=== PATIENT | female | born 1955 | race Caucasian/White ===

== ENCOUNTER 2017-11-24 07:30 | Inpatient (IN) | payer OTHER ==
[~2017-11-24] VITALS: Ht 160 cm; Wt 94.8 kg
[2017-11-24] MEDS ORDERED: LOSARTAN-HCTZ1 EAC1 PO (09:23)
[2017-12-02] MEDS ORDERED: ASA-EC81 MG PO (14:01)
[2017-12-04] MEDS ORDERED: DUI500 PO (08:11)
[2017-12-04] MEDS ORDERED: PERCOCET 5-3251 EACH PO (08:11)
[2017-12-04] MEDS ORDERED: XARELTO10 MG PO (08:11)
== END 2017-12-04 17:53 | DRG 470 ==
LOC: O/R 12-01 06:15 → SURH 12-01 07:30
PROVIDERS: Orthopaedic Surgery
PROC: 0MT Bursae and Ligaments, Resection (ICD-10-PCS; 2017-12-01)
PROC: 0SR902Z Replacement of Right Hip Joint with Metal on Polyethylene Synthetic Substitute, Open Approach (ICD-10-PCS; principal; 2017-12-01 13:30)
DX: M16.11 Unilateral primary osteoarthritis, right hip (principal); D62 Acute posthemorrhagic anemia; M89.751 Major osseous defect, right pelvic region and thigh; M70.61 Trochanteric bursitis, right hip; I10 Essential (primary) hypertension; E66.09 Other obesity due to excess calories

== ENCOUNTER 2017-12-11 13:04 | Emergency (ER) | payer OTHER ==
[~2017-12-11] VITALS: Ht 160 cm; Wt 98.4 kg
[~2017-12-11 13:04] MED LIST: ASA-EC81 MG PO; DUI500 PO; LOSARTAN-HCTZ1 EAC1 PO; PERCOCET 5-3251 EACH PO; XARELTO10 MG PO
== END 2017-12-11 17:57 | disposition home or self-care (01) ==
LOC: ER 13:04
DX: K52.9 Noninfective gastroenteritis and colitis, unspecified (principal); E86.0 Dehydration

== ENCOUNTER 2017-12-15 08:02 | Inpatient (IN) | payer OTHER ==
[~2017-12-15] VITALS: Ht 167.6 cm; Wt 97.1 kg
[2018-01-05] MEDS ORDERED: INTEGRA F CAPS1 EACH PO (20:11)
[2018-01-05] MEDS ORDERED: XOPENEX0.63 MG/3 IH (20:11)
[2018-01-05] MEDS ORDERED: XARELTO10 MG PO (20:11)
== END 2018-01-05 20:41 | disposition home health service (06) | DRG 571 ==
LOC: ER 08:02 → MEDI 19:32
PROVIDERS: Orthopaedic Surgery
PROC: BW3GY0Z Magnetic Resonance Imaging (MRI) of Pelvic Region using Other Contrast, Unenhanced and Enhanced (ICD-10-PCS; 2017-12-16)
PROC: 0SJ90ZZ Inspection of Right Hip Joint, Open Approach (ICD-10-PCS; 2017-12-17)
PROC: 0JBL0ZZ Excision of Right Upper Leg Subcutaneous Tissue and Fascia, Open Approach (ICD-10-PCS; principal; 2017-12-17 14:00)
PROC: 30233N1 Transfusion of Nonautologous Red Blood Cells into Peripheral Vein, Percutaneous Approach (ICD-10-PCS; 2017-12-18)
PROC: BT43ZZZ Ultrasonography of Bilateral Kidneys (ICD-10-PCS; 2017-12-23)
PROC: 3E0F7GC Introduction of Other Therapeutic Substance into Respiratory Tract, Via Natural or Artificial Opening (ICD-10-PCS; 2017-12-24)
PROC: 4A033R1 Measurement of Arterial Saturation, Peripheral, Percutaneous Approach (ICD-10-PCS; 2017-12-25)
DX: L03.115 Cellulitis of right lower limb (principal); T81.4XXA Infection following a procedure, initial encounter; D62 Acute posthemorrhagic anemia; T84.51XA Infection and inflammatory reaction due to internal right hip prosthesis, initial encounter; N17.8 Other acute kidney failure; B37.89 Other sites of candidiasis; J44.1 Chronic obstructive pulmonary disease with (acute) exacerbation; Y83.8 Other surgical procedures as the cause of abnormal reaction of the patient, or of later complication, without mention of misadventure at the time of the procedure; Y92.89 Other specified places as the place of occurrence of the external cause; I10 Essential (primary) hypertension; E66.01 Morbid (severe) obesity due to excess calories; M16.11 Unilateral primary osteoarthritis, right hip; Z96.641 Presence of right artificial hip joint; K52.89 Other specified noninfective gastroenteritis and colitis; E86.0 Dehydration; B96.89 Other specified bacterial agents as the cause of diseases classified elsewhere
CPT/HCPCS: 72196